=== PATIENT | female | born 2005 | race Caucasian/White ===

== ENCOUNTER 2024-02-07 14:14 | Outpatient (AMB) | payer BC, SELFPAY ==
--- NOTE | 2024-02-07 14:16 | HO.SPINEOV ---
Intake Visit Reasons: second opinion/low back pain Intake Note: Ms Warner is here today for a second opinion about her Low back pain. 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 It gives her trouble standing and walking for any length of time. She saw a surgeon in [place] who diagnosed her with spondylolisthesis and told her that she was very young and it would be too early in her life to start considering spinal fusion surgery. She wanted a 2nd opinion on the matter. She is currently also being referred to a pain management specialty to discuss possible options. She just recently started therapy. She will take fxis-efn-[id number] medications if needed. PMH: Bunion surgery but she is otherwise healthy Social hx: Does not smoke, occasional alcohol no recreational drugs Medications: None Allergies: None Physical exam: Intact strength and reflexes, gait is normal Imaging review: Lumbar MRI done at [facility] well as lumbar x-rays show a pars defect at L5 as well as grade 1 spondylolisthesis at L5-S1 with disc degeneration which I would rate as [id number]. She also has [id number] degeneration at L4-5. The rest of her discs look otherwise normal and healthy. Impression: 18-year-old female who has early symptoms from a pars defect at L5 with L5-S1 spondylolisthesis and L4-5 disc degeneration as well. She was told by a surgeon Dr. Herrera in [facility] that she was very early in her life to consider surgery and that she should attempt to do the nonoperative things and hold off as long as possible. She came today for 2nd opinion. We completely agree with this opinion. The draw back of attempting to treat this surgically is that it requires spinal fusion/immobilization of that L5-S1 segment of the spine which would then accelerate the degeneration that is already seen at L4-5. She is in high risk category for needing further surgery down the road. She should try to hold off on this as long as possible. We discussed the pain management route. I do not think that cortisone injections are going to give her much relief, at least anything that will be meaningful in the long run. Physical therapy is a good idea just as a matter of educating her on good lifting techniques and core strengthening etc.. We also discussed that she should avoid really strenuous activities that require axial loading and different physical activities that would put her back under large amounts of stress. We would be happy to see her back down the road if something changes. Thank you for allowing us to care for your patient. The total time spent with this visit with this patient was 45 minutes reviewing history, physical exam, lumbar imaging review, and implementation of treatment plan or further diagnostic testing Cisco Oro MD,PhD [facility] Coding Level of Care Code New Pt Level 4 (48657) Diagnoses Spondylolysis M43.00
== END 2024-02-07 14:38 | disposition home or self-care (01) ==
PROVIDERS: Visit Provider Physician Assistant
DX: M43.00 Spondylolysis, site unspecified (principal)
CPT/HCPCS: 99204

== ENCOUNTER → 2024-02-07 14:14 | Outpatient (BNVA) | payer BC, SELFPAY | PROVIDERS: Visit Provider Physician Assistant ==